=== PATIENT | female | born 1965 | race Caucasian/White ===

== ENCOUNTER 2017-04-23 09:14 | Emergency (ER) | payer OTHER ==
[2017-04-23 09:15] VITALS: BMI 31.6
[2017-04-23 09:22] VITALS: BP 121/81; PULSE 67; RESP 17; TEMP 97.8; O2SAT 98
--- NOTE | 2017-04-23 09:58 | ED PDOC ---
Addendum entered and electronically signed by GRAHAM ANG DO 04/23/17 11:42 : Addendum Addendum: 04/23/17 11:39 Patient requested medication for tight muscles in her neck and was given a prescription for 20 tablets of Naproxen 500mg. Instructions to take this medication as needed for neck pain, not to exceed two tablets per day and all adverse possible side effects were discussed with patient with patient verbalizing understanding. It was also suggested that patient establish care with a primary care doctor. Original Note: Arrival/HPI - History of Present Illness Time/Duration: < month Symptom Onset: Gradual Symptom Course: Intermittent Activities at Onset: Light Context: Walking <GRAHAM ANG - Last Filed: 04/23/17 11:39> <Narinder Tavarez - Last Filed: 04/23/17 12:42> - General Chief Complaint: Dizziness/Lightheaded Time Seen by Provider: 04/23/17 09:21 - History of Present Illness Narrative History of Present Illness (Text): 04/23/17 09:46 Ms. Perla is a 52 year old female with a past medical history significant for vitamin D deficiency presents to the [facility] [place] with a chief complaint of dizziness over the course of the past month. Patient reports that she has had three episodes of dizziness, each lasting around 30 seconds, all while walking. She describes the dizziness as her surroundings "spinning" and loss of her balance. She reports that she walks only a few hundred feet before the dizziness starts but that each episode has been self limiting. She reports that it only happens while walking and not at rest. Patient reports that she started walking as exercise in an effort to lose weight over the past month. Patient denies any associated syncope, LOC, falls or seizures. She denies fevers, chills, headache , chest pain, palpitations, SOB, cough, wheezing, abdominal pain, N/V, diarrhea , constipation, melena, burning with urination, hematuria, heavy menstrual bleeding or any numbness/tingling/weakness of any extremity. (GRAHAM ANG) Past Medical History - Provider Review Nursing Documentation Reviewed: Yes - Travel History Have you recently traveled outside [place] w/in the past 3 mons?: No - Past History Past History: No Previous - Infectious Disease Hx of Infectious Diseases: None - Tetanus Immunization Tetanus Immunization: Unknown - Past Medical History Past Medical History: No Previous - Cardiac Hx Cardiac Disorders: No - Pulmonary Hx Respiratory Disorders: No - Neurological Hx Neurological Disorder: No - HEENT Hx HEENT Disorder: No - Renal Hx Renal Disorder: No - Endocrine/Metabolic Hx Endocrine Disorders: No - Hematological/Oncological Hx Blood Disorders: No - Integumentary Hx Dermatological Disorder: No - Musculoskeletal/Rheumatological Hx Musculoskeletal Disorders: No - Gastrointestinal Hx Gastrointestinal Disorders: No - Genitourinary/Gynecological Hx Genitourinary Disorders: No - Psychiatric Hx Psychophysiologic Disorder: No Hx Substance Use: No - Surgical History Hx Appendectomy: Yes Hx Orthopedic Surgery: Yes (RIGHT LEG SX) Hx Tubal Ligation: Yes - Anesthesia Hx Anesthesia: Yes Hx Anesthesia Reactions: No Hx Malignant Hyperthermia: No - Suicidal Assessment Feels Threatened In Home Enviroment: No <GRAHAM ANG - Last Filed: 04/23/17 11:39> Family/Social History - Physician Review Nursing Documentation Reviewed: Yes Family/Social History: Diabetes Smoking Status: Never Smoked Hx Alcohol Use: No Hx Substance Use: No Hx Substance Use Treatment: No <GRAHAM ANG - Last Filed: 04/23/17 11:39> Allergies/Home Meds <GRAHAM ANG - Last Filed: 04/23/17 11:39> <Narinder Tavarez - Last Filed: 04/23/17 12:42> Allergies/Adverse Reactions: Allergies No Known Allergies Allergy (Verified 04/23/17 09:18) Review of Systems - Physician Review All systems were reviewed & negative as marked: Yes - Review of Systems Constitutional: Normal. absent: Fevers Eyes: Normal. absent: Vision Changes ENT: Normal. absent: Sore Throat Respiratory: Normal. absent: SOB, Cough, Wheezing Cardiovascular: Normal. absent: Chest Pain, Palpitations, Syncope Gastrointestinal: Normal, Other (Denies melena). absent: Abdominal Pain, Constipation, Diarrhea, Nausea, Vomiting Genitourinary Female: Normal. absent: Dysuria, Hematuria, Vaginal Bleeding ( denies heavy vaginal bleeding during menstration ) Musculoskeletal: Normal. absent: Back Pain Skin: Normal. absent: Rash Neurological: Dizziness, Disequilibrium (Endorses "loss of balance" but only during dizziness episodes). absent: Normal, Headache Endocrine: Normal. absent: Polyuria, Polydipsia <GRAHAM ANG - Last Filed: 04/23/17 11:39> Physical Exam Vital Signs Reviewed: Yes Temperature: Afebrile Blood Pressure: Normal Pulse: Regular Respiratory Rate: Normal Appearance: Positive for: Well-Appearing, Non-Toxic, Comfortable Pain Distress: None Mental Status: Positive for: Alert and Oriented X 3 Finger Stick Blood Glucose: 88 - Systems Exam Head: Present: Atraumatic, Normocephalic Pupils: Present: PERRL Extroacular Muscles: Present: EOMI Conjunctiva: Present: Normal Mouth: Present: Moist Mucous Membranes Pharnyx: Present: Normal. No: ERYTHEMA, EXUDATE, TONSILS ENLARGED Nose (External): Present: Atraumatic Nose (Internal): Present: Normal Inspection Neck: Present: Normal Range of Motion, Trachea Midline. No: Meningeal Signs, MIDLINE TENDERNESS, Paraspinal Tenderness, JVD, Lymphadenopathy Respiratory/Chest: Present: Clear to Auscultation, Good Air Exchange. No: Respiratory Distress, Accessory Muscle Use, Wheezes, Decreased Breath Sounds, Rales, Rhonchi, Tachypneic, Tender to Palpation Cardiovascular: Present: Regular Rate and Rhythm, Normal S1, S2, Peripheal Pulses Present. No: Murmurs, Irregular Rhythm, Tachycardic, Bradycardic Abdomen: Present: Normal Bowel Sounds. No: Tenderness, Distention, Peritoneal Signs Back: Present: Normal Inspection. No: CVA Tenderness, Midline Tenderness, Paraspinal Tenderness Upper Extremity: Present: Normal Inspection, Normal ROM, NORMAL PULSES, Capillary Refill < 2s. No: Cyanosis, Edema Lower Extremity: Present: Normal Inspection, NORMAL PULSES, Normal ROM, Capillary Refill < 2 s. No: Edema, CALF TENDERNESS Neurological: Present: GCS=15, CN II-XII Intact, Speech Normal Skin: Present: Warm, Dry, Normal Color. No: Rashes Lymphatic: No: Cervical Adenopathy Psychiatric: Present: Alert, Oriented x 3, Normal Insight, Normal Concentration <GRAHAM ANG - Last Filed: 04/23/17 11:39> Vital Signs Temp Pulse Resp BP Pulse Ox 04/23/17 09:21 97.8 F 67 17 121/81 98 Medical Decision Making - Lab Interpretations I have reviewed the lab results: Yes - EKG Interpretation Interpreted by ED Physician: Yes Type: 12 lead EKG <GRAHAM ANG - Last Filed: 04/23/17 11:39> <Narinder Tavarez - Last Filed: 04/23/17 12:42> ED Course and Treatment: 04/23/17 10:02 Impression: 52 year old female with a past medical history significant for vitamin D deficiency presents to the [facility] [place] with a chief complaint of dizziness over the course of the past month Plan: -CBC, CMP, cardiac iso's, and UA -EKG -Head CT w/o contrast -reassess and disposition Prior Visits: All reports and results from previous visits were reviewed. 09/2015: Patient was seen and evaluated for dizziness 04/23/17 11:31 Discussed with patient the results of her CT head and EKG, which both showed normal results. Discussed with patient further studies which could be performed but patient refused any further studies at this time. (GRAHAM ANG) 04/23/17 In agreement with resident note, which includes further HPI details. Patient was seen and evaluated with resident, came up with plan and treatment together. pt with non specific dizziness afor last month. poor characerization of symptoms , at times deescribed as lightheaded, other times described as vertigo. pt well appearing, neuro intact, no nsyagmus, steady gait. imaging labs unremarkable. pt decliens obs in hospital, advise outpt f/u and return precautions 04/23/17 12:41 (Narinder Tavarez) - Lab Interpretations Lab Results: 04/23/17 10:26 04/23/17 10:47 Lab Results 04/23/17 10:47: Sodium 140, Potassium 4.7, Chloride 105, Carbon Dioxide 28, Anion Gap 12, BUN 13, Creatinine 0.6 L, Est GFR ( Amer) > 60, Est GFR ( Non-Af Amer) > 60, Random Glucose 87, Calcium 9.0, Total Bilirubin 0.5, AST 18, ALT 21, Alkaline Phosphatase 65, Lactate Dehydrogenase 307 L, Total Creatine Kinase 64, Troponin I < 0.01, Total Protein 6.9, Albumin 4.0, Globulin 3.0, Albumin/Globulin Ratio 1.3 04/23/17 10:32: Urine HCG, Qual Negative 04/23/17 10:32: Urine Color Yellow, Urine Appearance Sl cloudy, Urine pH 7.5, Ur Specific [place] 1.015, Urine Protein Negative, Urine Glucose (UA) Negative, Urine Ketones Negative, Urine Blood Trace-intact H, Urine Nitrate Negative, Urine Bilirubin Negative, Urine Urobilinogen 0.2, Ur Leukocyte Esterase Negative , Urine RBC 0 - 2, Urine WBC 0 - 2, Ur Epithelial Cells 4 - 5, Urine Bacteria Trace 04/23/17 10:26: WBC 5.9, RBC 4.35, Hgb 11.8 L, Hct 36.1, MCV 83.0, MCH 27.1, MCHC 32.7, RDW 14.4, Plt Count 235, MPV 10.8, Gran % 61.3, Lymph % (Auto) 30.1, [place] % (Auto) 6.9 H, Eos % (Auto) 1.5, Baso % (Auto) 0.2, Gran # 3.63, Lymph # 1.8, [place] # 0.4, Eos # 0.1, Baso # 0.01 04/23/17 09:28: POC Glucose (mg/dL) 88 - RAD Interpretation Radiology Orders: 04/23/17 09:50 HEAD W/O CONTRAST [CT] Stat - EKG Interpretation EKG Interpretation (Text): 04/23/17 10:01 NSR at 60 bpm, normal intervals, no ST-T segment changes, no T wave abnormalities (GRAHAM ANG) - Medication Orders Current Medication Orders: Discontinued Medications Meclizine HCl (Antivert) 25 mg PO STAT STA Stop: 04/23/17 09:52 Last Admin: 04/23/17 10:42 Dose: 25 mg <GRAHAM ANG - Last Filed: 04/23/17 11:39> - PA / [employer]ARD [employer]OR [employer]ER / Resident Statement ROHAN has reviewed & agrees with the documentation as recorded. ROHAN has examined the patient and agrees with the treatment plan. - Scribe Statement The provider has reviewed the documentation as recorded by the Scribe <Narinder Tavarez - Last Filed: 04/23/17 12:42> - Scribe Statement Leatha Cortez Provider Scribe Attestation: All medical record entries made by the Scribe were at my direction and personally dictated by me. I have reviewed the chart and agree that the record accurately reflects my personal performance of the history, physical exam, medical decision making, and the department course for this patient. I have also personally directed, reviewed, and agree with the discharge instructions and disposition. (Narinder Tavarez) Disposition/Present on Arrival - Present on Arrival Any Indicators Present on Arrival: No History of DVT/PE: No History of Uncontrolled Diabetes: No Urinary Catheter: No History of Decub. Ulcer: No History Surgical Site Infection Following: None - Disposition Have Diagnosis and Disposition been Completed?: Yes Disposition Time: 11:28 <GRAHAM ANG - Last Filed: 04/23/17 11:39> <Narinder Tavarez - Last Filed: 04/23/17 12:42> - Disposition Diagnosis: Dizziness Disposition: HOME/ ROUTINE Condition: GOOD Discharge Instructions (ExitCare): Dizziness (ED) Additional Instructions: Jeremias Pan, thank you for letting us take care of you today. Your provider was Dr. Tavarez. You were treated for dizziness. The emergency medical care you received today was directed at your acute symptoms. If you were prescribed any medication, please fill it and take as directed. It may take several days for your symptoms to resolve. Return to the Emergency Department if your symptoms worsen, do not improve, or if you have any other problems. Please contact your doctor or call one of the physicians/clinics you have been referred to that are listed on the Patient Visit Information form that is included in your discharge packet. Bring any paperwork you were given at discharge with you along with any medications you are taking to your follow up visit. Our treatment cannot replace ongoing medical care by a primary care provider (PCP) outside of the emergency department. PLEASE FOLLOW UP WITH YOUR PRIMARY CARE DOCTOR WITHIN ONE WEEK FOR FOLLOW UP Thank you for allowing the [facility] team to be part of your care today. If you had an X-Ray or CT scan: A Radiologist will review the ED reading if any change in treatment is needed we will contact you. Prescriptions: Naproxen 500 mg PO BID PRN #20 tab PRN Reason: Pain, Moderate (4-7) Referrals: PCP,NO [Primary Care Provider] - Follow up with primary Forms: [employer] (Belarusian)
[2017-04-23 10:34] LABS: BASO # 0.01 K/mm3 (0.0-2.0); BASO % 0.2 % (0.0-3.0); EOS # 0.1 (0.0-0.7); EOS % 1.5 % (1.5-5.0); GRAN # 3.63 (1.4-6.5); GRAN % 61.3 % (50.0-68.0); HEMATOCRIT 36.1 % (36.0-48.0); LYMPH # 1.8 (1.2-3.4); LYMPH % 30.1 % (22.0-35.0); MEAN CORPUSCULAR HEMOGLOBIN 27.1 pg (25.0-35.0); MEAN CORPUSCULAR HGB CONC 32.7 g/dl (31.0-37.0); MEAN PLATELET VOLUME 10.8 fl (7.0-11.0); MONO # 0.4 (0.1-0.6); MONO % 6.9 % (1.0-6.0); RED CELL DISTRIBUTION WIDTH 14.4 % (11.5-14.5); WHITE BLOOD COUNT 5.9 10^3/ul (4.5-11.0)
[2017-04-23 10:43] LABS: PH,URINE 7.5 (4.7-8.0); URINE BILIRUBIN NEGATIVE (NEGATIVE); URINE BLOOD TRACE-INTACT (NEGATIVE); URINE GLUCOSE (UA) NEGATIVE (NEGATIVE); URINE KETONE NEGATIVE (NEGATIVE); URINE LEUKOCYTE ESTERASE NEGATIVE Leu/uL (NEGATIVE); URINE PROTEIN NEGATIVE mg/dL (<30 mg/dL); URINE UROBILINOGEN 0.2 E.U./dL (<1 E.U./dL)
[2017-04-23 10:46] LABS: URINE APPEARANCE SL CLOUDY (CLEAR); URINE COLOR YELLOW (YELLOW)
[2017-04-23 10:50] LABS: URINE BACTERIA TRACE (NEG); URINE RBC 0 - 2 /hpf (0-2); URINE WBC 0 - 2 /hpf (0-6)
[2017-04-23 11:01] LABS: ALB/GLOB RATIO 1.3 (1.1-1.8); ALKALINE PHOSPHATASE 65 U/L (38-126); ALT/SGPT 21 U/L (7-56); AST/SGOT 18 U/L (14-36); BILIRUBIN,TOTAL 0.5 mg/dL (0.2-1.3); BLOOD UREA NITROGEN 13 mg/dL (7-21); CARBON DIOXIDE 28 mmol/L (21-33); CHLORIDE 105 mmol/L (98-107); GFR AFRICAN-AMERICAN > 60; GLUCOSE,RANDOM 87 mg/dL (70-110); POTASSIUM 4.7 mmol/L (3.6-5.0); SODIUM 140 mmol/L (132-148); TOTAL PROTEIN 6.9 g/dL (5.8-8.3)
[2017-04-23 11:13] LABS: TROPONIN I < 0.01 ng/mL
--- NOTE | 2017-04-23 11:23 | CT ---
PROCEDURE: CT HEAD WITHOUT CONTRAST. HISTORY: dizziness COMPARISON: 06/01/2015 TECHNIQUE: Axial computed tomography images were obtained through the head/brain without intravenous contrast. Radiation dose: Total exam DLP = 681 mGy-cm. This CT exam was performed using one or more of the following dose reduction techniques: Automated exposure control, adjustment of the mA and/or kV according to patient size, and/or use of iterative reconstruction technique. FINDINGS: HEMORRHAGE: No intracranial hemorrhage. BRAIN: No mass effect or edema. No atrophy or chronic microvascular ischemic changes. VENTRICLES: Unremarkable. No hydrocephalus. CALVARIUM: Unremarkable. PARANASAL SINUSES: Unremarkable as visualized. No significant inflammatory changes. MASTOID AIR CELLS: Unremarkable as visualized. No inflammatory changes. OTHER FINDINGS: None. IMPRESSION: No acute findings
--- NOTE | 2017-04-24 02:09 | CARD ---
APPROVED REPORT EKG Measurement Heart [id number] <Conclusion> Normal sinus rhythm Normal ECG
== END 2017-04-23 11:51 | disposition home or self-care (01) ==
LOC: ED 09:14
DX: R42 Dizziness and giddiness (principal); E55.9 Vitamin D deficiency, unspecified

== ENCOUNTER 2018-02-10 17:17 | Emergency (ER) | payer OTHER ==
[2018-02-10 17:24] VITALS: BMI 35.0
[2018-02-10 17:26] VITALS: BP 143/83; RESP 18; TEMP 98.6
[2018-02-10] MEDS ORDERED: Sodium Chloride 0.9% 1,000 ML IV STA (17:40)
--- NOTE | 2018-02-10 17:40 | ED PDOC ---
"Arrival/HPI - General Chief Complaint: Abdominal Pain Time Seen by Provider: 02/10/18 17:20 Historian: Patient - History of Present Illness Narrative History of Present Illness (Text): 02/10/18 17:36 52 y/o female, pmh including low vitamin D and plantar fasciitis, post menopausal with bilateral tubal ligation, nkda, c/o periumbilical pain x 10 days with no fall or trauma. Aching and cramping pain, on and off, periumbilical radiating to the lower abdomen region, no nausea/vomiting/diarrhea , no vaginal bleeding or pelvic pain, no flank pain, no fever or chills, no night sweat, no palpitation, no other medical or psychological complaints. Past Medical History - Provider Review Nursing Documentation Reviewed: Yes - Past History Past History: No Previous - Infectious Disease Hx of Infectious Diseases: None - Tetanus Immunization Tetanus Immunization: Unknown - Past Medical History Past Medical History: No Previous - Cardiac Hx Hypertension: Yes (when she was ) - Pulmonary Hx Respiratory Disorders: No - Neurological Hx Neurological Disorder: No - HEENT Hx HEENT Disorder: No - Renal Hx Renal Disorder: No - Endocrine/Metabolic Hx Endocrine Disorders: No - Hematological/Oncological Hx Blood Disorders: No - Integumentary Hx Dermatological Disorder: No - Musculoskeletal/Rheumatological Hx Musculoskeletal Disorders: No - Gastrointestinal Hx Gastrointestinal Disorders: No - Genitourinary/Gynecological Hx Genitourinary Disorders: No - Psychiatric Hx Psychophysiologic Disorder: No Hx Substance Use: No - Surgical History Hx Appendectomy: Yes Hx Orthopedic Surgery: Yes (RIGHT LEG SX) Hx Tubal Ligation: Yes - Anesthesia Hx Anesthesia: Yes Hx Anesthesia Reactions: No Hx Malignant Hyperthermia: No - Suicidal Assessment Feels Threatened In Home Enviroment: No Family/Social History - Physician Review Nursing Documentation Reviewed: Yes Family/Social History: Unknown Family HX Smoking Status: Never Smoked Hx Alcohol Use: No Hx Substance Use: No Hx Substance Use Treatment: No Allergies/Home Meds Allergies/Adverse Reactions: Allergies No Known Allergies Allergy (Verified 04/23/17 09:18) Review of Systems - Review of Systems Constitutional: absent: Fatigue, Fevers Eyes: absent: Vision Changes ENT: absent: Hearing Changes Respiratory: absent: SOB, Cough Gastrointestinal: Abdominal Pain. absent: Diarrhea, Nausea, Vomiting Genitourinary Female: absent: Dysuria, Frequency, Hematuria, Urine Output Changes, Vaginal Bleeding, Vaginal Discharge Musculoskeletal: absent: Arthralgias, Back Pain Skin: absent: Rash, Pruritis Neurological: absent: Headache, Dizziness Psychiatric: absent: Anxiety, Depression Physical Exam Vital Signs Reviewed: Yes Vital Signs Temp Pulse Resp BP Pulse Ox 02/10/18 17:26 98.6 F 96 H 18 143/83 97 Temperature: Afebrile Blood Pressure: Normal Pulse: Regular Respiratory Rate: Normal Appearance: Positive for: Well-Appearing, Non-Toxic, Comfortable Pain Distress: None Mental Status: Positive for: Alert and Oriented X 3 - Systems Exam Head: Present: Atraumatic, Normocephalic Pupils: Present: PERRL Extroacular Muscles: Present: EOMI Conjunctiva: Present: Normal Mouth: Present: Moist Mucous Membranes Neck: Present: Normal Range of Motion Respiratory/Chest: Present: Clear to Auscultation, Good Air Exchange. No: Respiratory Distress, Accessory Muscle Use Cardiovascular: Present: Regular Rate and Rhythm, Normal S1, S2. No: Murmurs Abdomen: Present: Tenderness (mild epigastric and periumbilical tenderness, negative tineo signs. ). No: Distention, Peritoneal Signs, Rebound, Guarding Back: Present: Normal Inspection Upper Extremity: Present: Normal Inspection. No: Cyanosis, Edema Lower Extremity: Present: Normal Inspection. No: Edema Neurological: Present: GCS=15, CN II-XII Intact, Speech Normal, Motor Func Grossly Intact, Gait Normal, Memory Normal Skin: Present: Warm, Dry, Normal Color. No: Rashes Psychiatric: Present: Alert, Oriented x 3, Normal Insight, Normal Concentration Medical Decision Making ED Course and Treatment: 02/10/18 17:44 Differential: appendicitis vs. constipation vs. pancreatitis vs. UTI vs. gastritis -labs/ua -CT abdomen and pelvis -IVF/pepcid -Observe and reassess 02/10/18 19:46 -CT abdomen and pelvis show No acute findings. There are low density subcentimeter low density cystic foci in the myometrial region. Question related to adenomyosis, -UA show no UTI -Labs show no acute findings -Normal lipase level -Pain improved with the toradol IV -Labs and radiology result discussed with the patient that she would need outpatient obgyn and GI follow up . -Discharge home with pepcid, motrin, bed rest, follow up with your own pmd and GI/obgyn within 2 days, return to the ER for any new or worsening signs or symptoms. - Lab Interpretations Lab Results: 02/10/18 18:00 02/10/18 18:00 Lab Results 02/10/18 18:00: WBC 7.8 D, RBC 4.12, Hgb 10.8 L, Hct 33.1 L, MCV 80.3, MCH 26.2 , MCHC 32.6, RDW 14.6 H, Plt Count 313, MPV 10.5, Gran % 67.1, Lymph % (Auto) 25.2, [place] % (Auto) 6.1 H, Eos % (Auto) 1.3 L, Baso % (Auto) 0.3, Gran # 5.26, Lymph # (Auto) 2.0, [place] # (Auto) 0.5, Eos # (Auto) 0.1, Baso # (Auto) 0.02 02/10/18 18:00: Sodium 142, Potassium 3.9, Chloride 104, Carbon Dioxide 27, Anion Gap 14, BUN 12, Creatinine 0.6 L, Est GFR ( Amer) > 60, Est GFR ( Non-Af Amer) > 60, Random Glucose 107, Calcium 9.2, Total Bilirubin 0.3, AST 23 , ALT 25, Alkaline Phosphatase 68, Total Protein 6.9, Albumin 4.0, Globulin 2.9 , Albumin/Globulin Ratio 1.4, Lipase 84 02/10/18 17:50: Urine Color Yellow, Urine Appearance Clear, Urine pH 6.5, Ur Specific [place] 1.020, Urine Protein 100 H, Urine Glucose (UA) Negative, Urine Ketones Trace H, Urine Blood Small H, Urine Nitrate Negative, Urine Bilirubin Negative, Urine Urobilinogen 0.2, Ur Leukocyte Esterase Negative, Urine RBC 1 - 3, Urine WBC Negative, Ur Epithelial Cells 1 - 3, Urine Bacteria None I have reviewed the lab results: Yes - RAD Interpretation Radiology Orders: 02/10/18 17:40 ABD & PELVIS IV CONTRAST ONLY [CT] Stat FINDINGS: Lung bases: Unremarkable. No mass. No consolidation. ABDOMEN: Liver: Unremarkable. No mass. Gallbladder and bile ducts: Unremarkable. No calcified stones. No ductal dilation. Pancreas: Pancreas evaluation is limited. No ductal dilation. Spleen: Unremarkable. No splenomegaly. Adrenals: Unremarkable. No mass. Kidneys and ureters: Tiny nonobstructing calculus in the left kidney. Stomach and bowel: Bowel evaluation is limited due to lack of distention. No mucosal thickening. PELVIS: Appendix: No findings to suggest acute appendicitis. Bladder: Unremarkable. No mass. MISSAEL SANCHEZ | Preliminary Radiology Report STRAP BUCKLER MACHINE (QA) DISCREPANCY? If there is a discrepancy between the preliminary and final interpretation, please notify [facility] via [email or web address]. If you do not have access to our QA portal, call our QA team at [phone] CONFIDENTIALITY STATEMENT This report is intended only for the use of the referring physician, and only in accordance with law, If you received this in error, call [phone] Page 2 of 2 Reproductive: Probable cyst in the left ovary. The endometrium is prominent if the patient is still menstruating , within normal limits however correlate clinically. ABDOMEN and PELVIS: Intraperitoneal space: Unremarkable. No free air. No significant fluid collection. Bones/joints: No acute fracture. No dislocation. Soft tissues: periumbilical hernia containing fat. Vasculature: Unremarkable. No abdominal aortic aneurysm. Lymph nodes: Unremarkable. No enlarged lymph nodes. Other findings: There are low density subcentimeter low density foci in the myometrial region. Question related to adenomyosis, consider ultrasound evaluation. IMPRESSION: No acute findings. There are low density subcentimeter low density cystic foci in the myometrial region. Question related to adenomyosis, consider ultrasound evaluation. Thank you for allowing us to participate in the care of your patient. Dictated and Authenticated by: Elizabeth Brown MD 02/10/2018 7:43 PM Eastern Time ([place] & [place]) Machine Icer: Radiologist - Medication Orders Current Medication Orders: Discontinued Medications Famotidine (Pepcid) 20 mg IVP STAT STA Stop: 02/10/18 17:41 Last Admin: 02/10/18 18:19 Dose: 20 mg IVP Administration Document 02/10/18 18:19 OCS (Rec: 02/10/18 18:19 OCS [id number]) Charges for Administration # of IVP Administrations 1 Sodium Chloride (Sodium Chloride 0.9%) 1,000 mls @ 999 mls/hr IV .Q1H1M STA Stop: 02/10/18 18:40 Last Admin: 02/10/18 18:21 Dose: 999 mls/hr eMAR Start Stop Document 02/10/18 18:21 OCS (Rec: 02/10/18 18:22 OCS [id number]) Intravenous Solution Start Date 02/10/18 Start Time 18:22 End Date 02/10/18 End time 19:23 Total Infusion Time 61 Ketorolac Tromethamine (Toradol) 30 mg IVP STAT STA Stop: 02/10/18 19:47 - PA / [employer] / Resident Statement MD/DO has reviewed & agrees with the documentation as recorded. Disposition/Present on Arrival - Present on Arrival Any Indicators Present on Arrival: No History of DVT/PE: No History of Uncontrolled Diabetes: No Urinary Catheter: No History of Decub. Ulcer: No History Surgical Site Infection Following: None - Disposition Have Diagnosis and Disposition been Completed?: Yes Diagnosis: Adenomyoma, Abdominal pain Disposition: HOME/ ROUTINE Disposition Time: 19:49 Patient Plan: Discharge Patient Problems: Current Active Problems Problem Status Onset Adenomyoma Acute Abdominal pain Acute Condition: IMPROVED Additional Instructions: -Discharge home with pepcid, motrin, bed rest, follow up with your own pmd and GI/obgyn within 2 days, return to the ER for any new or worsening signs or symptoms. Prescriptions: Famotidine [Pepcid] 20 mg PO BID #20 tab Ibuprofen [Motrin Tab] 600 mg PO QID PRN #30 tab PRN Reason: other Referrals: Jose R Irvin MD [Staff Provider] - Follow up with primary Matt Del Toro MD [Staff Provider] - Follow up with primary Forms: WORK NOTE"
[2018-02-10 18:00] LABS: PH,URINE 6.5 (4.7-8.0); URINE BILIRUBIN NEGATIVE (NEGATIVE); URINE BLOOD SMALL (NEGATIVE); URINE GLUCOSE (UA) NEGATIVE (NEGATIVE); URINE LEUKOCYTE ESTERASE NEGATIVE Leu/uL (NEGATIVE); URINE PROTEIN 100 mg/dL (<30 mg/dL); URINE UROBILINOGEN 0.2 E.U./dL (<1 E.U./dL)
[2018-02-10 18:01] LABS: URINE APPEARANCE CLEAR (CLEAR); URINE COLOR YELLOW (YELLOW)
[2018-02-10 18:13] LABS: BASO # 0.02 K/mm3 (0.0-2.0); BASO % 0.3 % (0.0-3.0); EOS # 0.1 (0.0-0.7); EOS % 1.3 % (1.5-5.0); GRAN # 5.26 (1.4-6.5); GRAN % 67.1 % (50.0-68.0); HEMOGLOBIN 10.8 g/dL (12.0-16.0); LYMPH % 25.2 % (22.0-35.0); MEAN CELL VOLUME 80.3 fl (80.0-105.0); MEAN CORPUSCULAR HEMOGLOBIN 26.2 pg (25.0-35.0); MEAN CORPUSCULAR HGB CONC 32.6 g/dl (31.0-37.0); MEAN PLATELET VOLUME 10.5 fl (7.0-11.0); MONO # 0.5 (0.1-0.6); MONO % 6.1 % (1.0-6.0); RBC 4.12 10^6/uL (3.5-6.1); RED CELL DISTRIBUTION WIDTH 14.6 % (11.5-14.5); WHITE BLOOD COUNT 7.8 10^3/ul (4.5-11.0)
[2018-02-10 18:18] LABS: URINE WBC NEGATIVE /hpf (0-6)
[2018-02-10 18:23] LABS: ALB/GLOB RATIO 1.4 (1.1-1.8); ALT/SGPT 25 U/L (7-56); AST/SGOT 23 U/L (14-36); BLOOD UREA NITROGEN 12 mg/dL (7-21); CALCIUM 9.2 mg/dL (8.4-10.5); GFR AFRICAN-AMERICAN > 60; GFR NON-AFRICAN AMERICAN > 60; LIPASE 84 U/L (23-300)
[2018-02-10] MEDS ORDERED: Iohexol 350 MG/100 ML VIAL ONE (18:46)
[2018-02-10 21:01] VITALS: PULSE 82; O2SAT 98
--- NOTE | 2018-02-11 08:24 | CT ---
Date of service: 02/10/2018 PROCEDURE: CT Abdomen and Pelvis with contrast HISTORY: Periumbilical pain. Ten days duration. Negative test (concurrent with this examination). COMPARISON: None. TECHNIQUE: Contrast dose: 100 cc Omnipaque 350 Radiation dose: Total exam DLP = 749.96 mGy-cm. This CT exam was performed using one or more of the following dose reduction techniques: Automated exposure control, adjustment of the mA and/or kV according to patient size, and/or use of iterative reconstruction technique. FINDINGS: LOWER THORAX: Unremarkable. LIVER: Unremarkable. No gross lesion or ductal dilatation. GALLBLADDER AND BILE DUCTS: Unremarkable. PANCREAS: Unremarkable. No gross lesion or ductal dilatation. SPLEEN: Unremarkable. ADRENALS: Unremarkable. No mass. KIDNEYS AND URETERS: Unremarkable. No hydronephrosis. No solid mass. Incidental finding(s): 4 mm nonobstructing calculus upper pole left kidney. VASCULATURE: Unremarkable. No aortic aneurysm. BOWEL: Unremarkable. No obstruction. No gross mural thickening. APPENDIX: Normal appendix. PERITONEUM: Unremarkable. No free fluid. No free air. LYMPH NODES: Unremarkable. No enlarged lymph nodes. BLADDER: Unremarkable. REPRODUCTIVE: Left adnexal cyst/follicle measures 2.8 cm in diameter. BONES: No acute fracture. OTHER FINDINGS: None. IMPRESSION: No significant or acute findings to account for/ related to the clinical presentation. Additional benign and/or incidental findings described above. Concordant results (preliminary interpretation) provided by [facility].. Procedure Completed: 19:23 Preliminary ([facility]) Report: Dictated and Authenticated: 19:43 Final Interpretation: 08:23. February 11, 2018.
== END 2018-02-10 21:01 | disposition home or self-care (01) ==
LOC: ED 17:17
DX: R10.33 Periumbilical pain (principal)
CPT/HCPCS: 74177; 80053; 81001; 83690; 85025; 96361; 96374; 96375; 99283; J1885; J7030; Q9967

== ENCOUNTER 2018-08-18 08:51 | Emergency (ER) | payer OTHER ==
[2018-08-18 09:03] VITALS: TEMP 98.9
[2018-08-18 09:13] VITALS: BMI 28.6
--- NOTE | 2018-08-18 09:28 | ED PDOC ---
Arrival/HPI - General Time Seen by Provider: 08/18/18 09:11 Historian: Patient - History of Present Illness Narrative History of Present Illness (Text): 08/18/18 09:25 53 year old female, whose past medical history includes significant vitamin D deficiency and plantar fascitis, presents to the emergency department complaining of chest pain and blue fingers, for the past couple of days. Patient states the chest pain began about a week ago when she tried removing her jacket. She reports her hands bilaterally, would develop blue spots suddenly and intermittently, 2 days ago. The blue discoloration has not returned for the last 2 days and she currently has a normal skin tone on her hands. Denies occurring in a cold environment. Patient denies fevers, chills, headache, dizziness, shortness of breath, dyspnea on exertion, cough, abdominal pain, nausea, vomiting, diarrhea, back pain, neck pain, or any other complaint. Time/Duration: < week Symptom Onset: Gradual Symptom Course: Intermittent Activities at Onset: Light Context: Other (advent) Past Medical History - Provider Review Nursing Documentation Reviewed: Yes - Past History Past History: No Previous - Infectious Disease Hx of Infectious Diseases: None - Tetanus Immunization Tetanus Immunization: Unknown - Reproductive Currently : No - Past Medical History Past Medical History: No Previous - Cardiac Hx Hypertension: Yes (when she was ) - Pulmonary Hx Respiratory Disorders: No - Neurological Hx Neurological Disorder: No - HEENT Hx HEENT Disorder: No - Renal Hx Renal Disorder: No - Endocrine/Metabolic Hx Endocrine Disorders: No - Hematological/Oncological Hx Blood Disorders: No - Integumentary Hx Dermatological Disorder: No - Musculoskeletal/Rheumatological Hx Musculoskeletal Disorders: No - Gastrointestinal Hx Gastrointestinal Disorders: No - Genitourinary/Gynecological Hx Genitourinary Disorders: No - Psychiatric Hx Psychophysiologic Disorder: No Hx Substance Use: No - Surgical History Hx Appendectomy: Yes Hx Orthopedic Surgery: Yes (RIGHT LEG SX) Hx Tubal Ligation: Yes - Anesthesia Hx Anesthesia: Yes Hx Anesthesia Reactions: No Hx Malignant Hyperthermia: No - Suicidal Assessment Feels Threatened In Home Enviroment: No Family/Social History - Physician Review Nursing Documentation Reviewed: Yes Family/Social History: No Known Family HX Smoking Status: Never Smoked Hx Alcohol Use: No Hx Substance Use: No Hx Substance Use Treatment: No Allergies/Home Meds Allergies/Adverse Reactions: Allergies No Known Allergies Allergy (Verified 08/18/18 09:27) Home Medications: Home Meds Medication Instructions Recorded Confirmed No Known Home Med 08/18/18 08/18/18 Review of Systems - Physician Review All systems were reviewed & negative as marked: Yes - Review of Systems Constitutional: absent: Fevers Respiratory: absent: SOB Physical Exam - Physical Exam Narrative Physical Exam (Text): 08/18/18 09:26 Constitutional: No acute distress. Head: Normocephalic. Atraumatic. Eyes: PERRL. ENT: Moist mucous membranes. Neck: Supple. Cardiovascular: Regular rate. Chest: reproducible chest tenderness. Respiratory: Clear to auscultation bilaterally. GI: Soft. Nontender. Nondistended. Back: No CVA tenderness. Musculoskeletal: No tenderness or swelling of extremities. Radial pulses 2+ bilaterally. Capillary refill < 2seconds. Skin: No rash. hands warm. normal skin tone. Neurologic: Alert, no focal deficit. Vital Signs Reviewed: Yes Vital Signs Temp Pulse Resp BP Pulse Ox 08/18/18 09:02 98.9 F 79 16 141/75 97 Temperature: Afebrile Blood Pressure: Normal Pulse: Regular Respiratory Rate: Normal Appearance: Positive for: Well-Appearing, Non-Toxic, Comfortable Pain Distress: None Mental Status: Positive for: Alert and Oriented X 3 Medical Decision Making ED Course and Treatment: 08/18/18 09:25 Impression: 53 year old female who presents to the emergency department complaining of chest pain and blue discoloration to her hands bilaterally. Plan: -- EKG -- Labs -- Chest X-ray -- Toradol -- Reassess and disposition Prior Visits: Notes and results from previous visits were reviewed. Progress Notes: 08/18/18 09:52 EKG reviewed by NSR at [address]/T changes. Labs unremarakble. CXR no acute disease. Discharged home, f/u clinic, return to ED for worsening pain, fever, vomiting, dyspnea, skin discoloration, or any other problem. - Lab Interpretations I have reviewed the lab results: Yes - EKG Interpretation Interpreted by ED Physician: Yes Type: 12 lead EKG - Scribe Statement The provider has reviewed the documentation as recorded by the Wallace Francisco Provider Scribe Attestation: All medical record entries made by the Maximoxavi were at my direction and personally dictated by me. I have reviewed the chart and agree that the record accurately reflects my personal performance of the history, physical exam, medical decision making, and the department course for this patient. I have also personally directed, reviewed, and agree with the discharge instructions and disposition. Disposition/Present on Arrival - Present on Arrival Any Indicators Present on Arrival: No History of DVT/PE: No History of Uncontrolled Diabetes: No Urinary Catheter: No History Surgical Site Infection Following: None - Disposition Have Diagnosis and Disposition been Completed?: Yes Diagnosis: Chest pain, Bluish skin discoloration Disposition: HOME/ ROUTINE Disposition Time: 11:25 Patient Plan: Discharge Patient Problems: Current Active Problems Problem Status Onset Bluish skin discoloration Acute Chest pain Acute Condition: STABLE Discharge Instructions (ExitCare): Chest Pain (ED) Referrals: [facility] [place] - Follow up with primary
[2018-08-18 10:45] LABS: BASO # 0.01 K/mm3 (0.0-2.0); BASO % 0.2 % (0.0-3.0); EOS # 0.1 (0.0-0.7); EOS % 1.8 % (1.5-5.0); HEMOGLOBIN 12.3 g/dL (12.0-16.0); LYMPH # 1.8 (1.2-3.4); LYMPH % 29.9 % (22.0-35.0); MEAN CELL VOLUME 83.6 fl (80.0-105.0); MEAN CORPUSCULAR HEMOGLOBIN 26.9 pg (25.0-35.0); MEAN CORPUSCULAR HGB CONC 32.2 g/dl (31.0-37.0); MEAN PLATELET VOLUME 10.3 fl (7.0-11.0); MONO # 0.4 (0.1-0.6); RBC 4.57 10^6/uL (3.5-6.1); RED CELL DISTRIBUTION WIDTH 15.2 % (11.5-14.5); WHITE BLOOD COUNT 6.1 10^3/uL (4.5-11.0)
[2018-08-18 11:01] LABS: ALB/GLOB RATIO 1.3 (1.1-1.8); ALBUMIN 4.3 g/dL (3.0-4.8); ALT/SGPT 24 U/L (7-56); AST/SGOT 16 U/L (14-36); BLOOD UREA NITROGEN 11 mg/dL (7-21); CALCIUM 9.8 mg/dL (8.4-10.5); GFR NON-AFRICAN AMERICAN > 60
[2018-08-18 11:12] VITALS: BP 133/66; PULSE 68; RESP 18; O2SAT 100
[2018-08-18 11:12] LABS: TROPONIN I < 0.01 ng/mL
--- NOTE | 2018-08-18 14:38 | RAD ---
Date of service: 08/18/2018 HISTORY: chest pain COMPARISON: Chest radiographs 10/08/2016. FINDINGS: LUNGS: No active pulmonary disease. PLEURA: No significant pleural effusion identified, no pneumothorax apparent. CARDIOVASCULAR: No aortic atherosclerotic calcification present. Normal cardiac size. No pulmonary vascular congestion. OSSEOUS STRUCTURES: No significant abnormalities. VISUALIZED UPPER ABDOMEN: Normal. OTHER FINDINGS: None. IMPRESSION: No interval acute cardiopulmonary disease appreciated.
--- NOTE | 2018-08-19 12:49 | CARD ---
APPROVED REPORT Date of service: 08/18/2018 EKG Measurement Heart [id number] <Conclusion> Normal sinus rhythm Normal ECG
== END 2018-08-18 11:56 | disposition home or self-care (01) ==
LOC: ED 08:51
DX: R07.9 Chest pain, unspecified (principal); R23.0 Cyanosis
CPT/HCPCS: 71045; 80053; 81025; 82550; 84484; 85025; 93005; 96374; 99283; J1885